=== PATIENT | female | born 1980 | race Caucasian/White ===

== ENCOUNTER → 2016-10-28 | Day surgery (SDC) | payer OTHER ==
[~2016-10-28] MED LIST: ADVA250A INH; BUPIVACAINE HCL PF 0.75% 30 ML VIAL ONE; EPINEPHrine HCL (1:1000) 30 MG/30 ML VIAL ONE; KETOROLAC TROMETHAMINE 30 MG/ML (IVP) VIAL IV PUSH ONE; LACTATED RINGER'S 1000 ML INJ 1,000 ML ONE; LIDOCAINE 1.5%/EPINEPHrine 1:200,000 PF SOLN 30 ML AMP ONE; MEPERIDINE HCL 50 MG/ML VIAL ONE; MIDAZOLAM HCL 5 MG/ML VIAL (1 ML) ONE; MORPHINE SULFATE 4 MG/ML INJ ONE; ONDANSETRON HCL 4 MG/2 ML VIAL IV PUSH ONE; PRENTAB72 PO; PROPOFOL 100 MG/10 ML INJ IV ONE; SODIUM CHLORIDE 0.9% 20 ML VIAL ONE; ceFAZolin 2 GM PREMIX 50 ML ONE; ceFAZolin INJ 1,000 MG VIAL ONE; oxyCODONE/ACETAMINOPHEN 5 MG/325 MG TAB ONE
--- NOTE | 2016-10-29 09:11 | MP ---
cc: KATHLEEN SANDOVAL M.D. DATE OF SURGERY 10/28/2016 PREOPERATIVE DIAGNOSIS Left knee anterior cruciate ligament tear and bucket-handle medial meniscus tear. POSTOPERATIVE DIAGNOSIS Left knee anterior cruciate ligament tear and bucket-handle medial meniscus tear. PROCEDURE 1. Left knee arthroscopic-assisted anterior cruciate ligament reconstruction with posterior tibialis allograft with Endo-Button on the femoral side and a 10 x 30 Bio-Interference screw on the tibial side. 2. Left knee arthroscopic partial medial meniscectomy. ANESTHETIC Femoral block and general. SURGEON Kathleen Sandoval MD GATEKEEPER SURGEON ASHA Michaels ESTIMATED BLOOD LOSS Minimal. DRAIN None. SPECIMEN None. TOURNIQUET TIME None. COMPLICATIONS None known. INDICATION The patient is 37-year-old female with ACL instability and a large bucket-handle meniscus tear. She is markedly unstable and painful with this condition. She is indicated for reconstructive surgery. Risks, benefits and the alternatives to treatment were thoroughly discussed and a detailed, informed consent has been obtained. The first beater, Hudson Gamez is an advanced registered nurse practitioner. His skill set was medically necessary for the performance of the operation. PROCEDURE The patient was given a femoral block in the preop holding area, then brought to the operating room, placed under general anesthetic. The left lower extremity was draped and prepped in the usual sterile fashion. IV antibiotics were given, time-out completed. The allograft was prepared on the back table. The packaging said 10-mm but we were able to fit it on the femoral side through a 9-mm and on the tibial side with 9.5-mm. We folded this in half so the graft length was 9.5 cm and then provisionally affixed to the Endo-Button and then did a whipstitch with #5 FiberWire at the knee. We made inferolateral portal, blunt trocar used to introduce the cannula, the knee insufflated with saline. The patellofemoral joint appeared normal. Notch showed complete absence of the ACL on the femoral attachment site. There was some stump remaining. The medial side of the knee showed a bucket-handle meniscus which was frayed and beaten up on its backside. It involved about two-thirds of the meniscus with the remnant third present. The lateral side of the knee showed some minimal fissuring on the tibial plateau, otherwise normal. We proceeded with arthroscopic partial medial meniscectomy using a combination of basket forceps and arthroscopic shaver. Follow-up photograph taken here. We used cautery within the notch and performed a notchplasty and then used an [id number] guide through the femoral tunnel for placement of our femoral socket. We did this over a Beath needle and then we over-reamed the far cortex and then placed a #2 Ticron suture. We then used the Acufex gold guide on the tibial side second incision and made our tibial tunnel which came out to the footprint of the ACL. Then we thoroughly irrigated the knee out and tied off the graft to the appropriate length and then pulled the graft into position and locked it with the Endo-Button on the femoral side and then the Bio-Interference screw on the tibial side with excellent fixation. Raz was now negative. Repeat diagnostic arthroscopy revealed no loose bodies. Final photographs of the ACL were taken with mid-flexion and full extension. We proceeded to close in layers with absorbable suture, subcuticular on the skin. Steri-Strips applied. Sterile dressing applied. Sof-Rol, Leon wrap applied. Knee brace was to be applied in the recovery room. The patient was awoken and returned to the recovery room in stable condition. MD CALEB León/NASEEM /3:37 PM /9:00 AM
== END | disposition home or self-care (01) ==
LOC: ESDC 11:36
PROVIDERS: ATTEND Orthopaedic Surgery Sports Medicine
DX: S83.512A Sprain of anterior cruciate ligament of left knee, initial encounter (principal); S83.212A Bucket-handle tear of medial meniscus, current injury, left knee, initial encounter
CPT/HCPCS: 01400; 01991; 29881; 29888; 64447; J0171; J0690; J1885; J2175; J2250; J2270; J2405; J3010; J7120; C1713

== ENCOUNTER 2017-10-20 22:02 | Emergency (ER) | payer MEDICAID, OTHER ==
[~2017-10-20] VITALS: Ht 160 cm; Wt 92.0 kg
[~2017-10-20 22:02] MED LIST changes: -BUPIVACAINE HCL PF 0.75% 30 ML VIAL ONE; -EPINEPHrine HCL (1:1000) 30 MG/30 ML VIAL ONE; -KETOROLAC TROMETHAMINE 30 MG/ML (IVP) VIAL IV PUSH ONE; -LACTATED RINGER'S 1000 ML INJ 1,000 ML ONE; -LIDOCAINE 1.5%/EPINEPHrine 1:200,000 PF SOLN 30 ML AMP ONE; -MEPERIDINE HCL 50 MG/ML VIAL ONE; -MIDAZOLAM HCL 5 MG/ML VIAL (1 ML) ONE; -MORPHINE SULFATE 4 MG/ML INJ ONE; -ONDANSETRON HCL 4 MG/2 ML VIAL IV PUSH ONE; -PROPOFOL 100 MG/10 ML INJ IV ONE; -SODIUM CHLORIDE 0.9% 20 ML VIAL ONE; -ceFAZolin 2 GM PREMIX 50 ML ONE; -ceFAZolin INJ 1,000 MG VIAL ONE; -oxyCODONE/ACETAMINOPHEN 5 MG/325 MG TAB ONE
[2017-10-20 22:06] VITALS: BP 129/86; PULSE 82; RESP 16; TEMP 98.8; O2SAT 98
[2017-10-20] MEDS ORDERED: IBUPROFEN 600 MG TAB PO ONE (23:30)
[2017-10-20] MEDS ORDERED: VENTAER INH (23:34)
--- NOTE | 2017-10-20 23:34 | PD ---
HPI Chief Complaint: Cold / Flu Symptoms Time Seen by Provider: 23:22 Travel History International Travel<30 days: No Contact w/Intl Traveler<30days: No Traveled to known affect area: No History of Present Illness HPI 37 years old female complains of headache, body aches, coughing congestion, low- grade fever . Patient states that his symptoms started yesterday. Patient was diagnosed with the flu a month ago. Patient was given prescription for Tamiflu however patient stated that she did not not take it because of financial situation. Patient states that she got better and then get worse again 2 days ago. Patient denies any abdominal pain nausea vomiting diarrhea. Patient states that the cough is persistent dry cough. Patient has history of asthma. Patient states that she ran out of her inhaler. PFSH Past Medical History Asthma: Yes Gastrointestinal Disorders: Yes (IBS) Musculoskeletal: Yes (scoliosis, "sciatica") Respiratory: Yes (asthma) Seizures: Yes (epilepsy) Influenza Vaccination: No ?: Not LMP: 09/20/17 Menopausal: No : 6 Para: 4 Miscarriage: 1 Tubal Ligation: Yes Past Surgical History Section: Yes (x3) Other Surgery: Yes (L knee) Social History Alcohol Use: No Tobacco Use: Yes (2 CIGS A DAY) Substance Use: No Allergies-Medications (Allergen,Severity, Reaction): Coded Allergies: carbamazepine (Unverified Allergy, Severe, PARANOID, 10/20/17) pemoline (Unverified Allergy, Severe, 10/20/17) Reported Meds & Prescriptions Reported Meds & Active Scripts Active Reported Advair Diskus 250/50 (Salmeterol Xinafoate/Fluticasone) 250 Mcg/50 Mcg Inhp 1 Puff INH BID ( Vit W/ Ferrous Fumara) Tab 1 Tab PO DAILY Review of Systems General / Constitutional: Positive: Fever Eyes: No: Visual changes HENT: Positive: Headaches Cardiovascular: No: Chest Pain or Discomfort Respiratory: Positive: Cough, No: Shortness of Breath Gastrointestinal: No: Abdominal Pain Genitourinary: No: Dysuria Musculoskeletal: No: Pain Skin: No Rash Neurologic: No: Weakness Psychiatric: No: Depression Endocrine: No: Polydipsia Hematologic/Lymphatic: No: Easy Bruising Physical Exam Narrative GENERAL: Well-nourished, well-developed patient. SKIN: Focused skin assessment warm/dry. HEAD: Normocephalic. EYES: No scleral icterus. No injection or drainage. NECK: Supple, trachea midline. No JVD or lymphadenopathy. CARDIOVASCULAR: Regular rate and rhythm without murmurs, gallops, or rubs. RESPIRATORY: Breath sounds equal bilaterally. No accessory muscle use. GASTROINTESTINAL: Abdomen soft, non-tender, nondistended. MUSCULOSKELETAL: No cyanosis, or edema. BACK: Nontender without obvious deformity. No CVA tenderness. Neurologic exam normal. Data Data Last Documented VS Vital Signs Date Time Temp Pulse Resp B/P (MAP) Pulse Ox O2 Delivery O2 Flow Rate FiO2 10/20/17 22:06 98.8 82 16 129/86 (100) 98 Orders Orders Ibuprofen (Motrin) (10/20/17 23:30) [facility] Medical Decision Making Medical Screen Exam Complete: Yes Emergency Medical Condition: Yes Differential Diagnosis Differential diagnosis including viral syndrome, bronchitis, pneumonia, acute exacerbation of asthma. Narrative Course 37 years old female with headache, body ache, coughing congestion, fever. Diagnosis Primary Impression: Viral syndrome Patient Instructions: General Instructions Additional Instructions: Albuterol inhaler as needed. Tylenol ibuprofen for headache, aching pain and fever. Follow-up with personal physician. Return if worse. Med/Other Pt SpecificInfo: Prescription(s) given Scripts Albuterol 18 GM Inh (Ventolin Hfa 18 GM Inh) 90 Mcg/Act Aer 2 PUFF INH Q4-6H Y for SHORTNESS OF BREATH, #1 INHALER 0 Refills Prov: Lester Louise MD 10/20/17 Disposition: 01 DISCHARGE HOME Condition: Stable Lester Louise MD Oct 20, 2017 23:34
== END 2017-10-21 00:04 | disposition home or self-care (01) ==
LOC: NEPD 22:02
DX: B34.9 Viral infection, unspecified (principal); R50.9 Fever, unspecified; R51 Headache; J45.909 Unspecified asthma, uncomplicated; Z72.0 Tobacco use
CPT/HCPCS: 99283